=== PATIENT | female | born 1990 | race African-American/Black ===

== ENCOUNTER 2017-03-23 08:44 | Emergency (ER) | payer MEDICARE, MEDICAID ==
[~2017-03-23] VITALS: Ht 165.1 cm; Wt 99.0 kg
[~2017-03-23 08:44] MED LIST: AMOXICILLI400 MG/5 M PO; AMOXICILLIN875 MG OR; AUGMENTINES600 PO; BACTRIM DS1 TAB PO; BIRTH CONTROL; CIPRO500 MG OR; CIPROFLOXACN500 MG PO; CLEOCIN VAG2 % VA; DEPO-PROVER150 MG/ML IM; DIFLUCAN150 MG OR; DIFLUCAN150 MG PO; ELIMITE5 % EX; FAMVIR500 MG OR; FIORICET PO; LORTAB5 PO; MEDDOSEPAK PO; METRONIDAZOL0.75 % VA; METRONIDAZOL0.752 EX; NAPROSYN500 MG OR; NAPROSYN500 MG PO; NO HOME MEDS; TORADOL PO; TRAMADOL HCL50 MG PO; TRAZODONE100 MG OR; TRIMOX500 MG PO; ULTRAM50 MG OR; WELLBUTRIN150 M1 OR
[2017-03-23 09:38] LABS: HEMATOCRIT 38.1 % (37.0-47.0); HEMOGLOBIN 13.4 g/dl (12.0-16.0); IMMATURE GRANULOCYTES 0.4 % (0.0-1.0); MEAN CORPUSCULAR HGB 29.9 pG CALC (26.0-32.0); MEAN CORPUSCULAR HGB CONC 35.2 g/L CALC (32.0-36.0); NEUT# 10.42 thou/uL (2.00-7.15); RED BLOOD COUNT 4.48 mill/uL (4.20-5.60); RED CELL DISTRI WIDTH 14.1 % (11.5-15.5)
[2017-03-23 09:39] LABS: URINE BILIRUBIN - DIPSTICK NEGATIVE (NEGATIVE); URINE BLOOD DIPSTICK NEGATIVE (NEGATIVE); URINE CLARITY CLEAR; URINE COLOR YELLOW; URINE GLUCOSE - DIPSTICK NEGATIVE (NEGATIVE); URINE KETONE NEGATIVE (NEGATIVE); URINE LEUK ESTERASE NEGATIVE (NEGATIVE); URINE NITRITE - DIPSTICK NEGATIVE (Negative); URINE PH 5.5 (4.5-8.0); URINE PROTEIN - DIPSTICK NEGATIVE (NEG-TRACE); URINE SPECIFIC GRAVITY 1.015; URINE UROBILINOGEN - DIPSTICK 0.2 E.U./dL (0.2)
[2017-03-23 09:42] LABS: ALBUMIN 4.2 g/dL (3.2-5.0); ALKALINE PHOSPHATASE 66 u/l (38-126); AMYLASE 103 u/l (30-110); ANION GAP 13 (6-22 (CALC)); BILIRUBIN, TOTAL 0.6 mg/dL (0.0-1.4); BUN 10 mg/dL (7-17); BUN/CREATININE RATIO 12 (12-20 (CALC)); CALCIUM 9.5 mg/dL (8.4-10.2); CARBON DIOXIDE 27 mmol/l (22-30); CHLORIDE 105 mmol/l (95-108); CREATININE 0.8 mg/dL (0.5-1.0); GFR > 60 ML/MIN (>=60 (CALC)); GFR FOR AFR.AMER. > 60 ML/MIN (>=60 (CALC)); GLUCOSE 92 mg/dL (65-105); LIPASE 122 u/l (23-300); SGOT/AST 21 u/l (14-36); SGPT/ALT 24 u/l (9-52); SODIUM 141 mmol/l (137-146); TOTAL PROTEIN 7.3 g/dL (6.3-8.2)
[2017-03-23] MEDS ORDERED: NAPROSYN500 MG PO (11:29)
[2017-03-23 11:31] VITALS: BP 135/67
== END 2017-03-23 11:36 | disposition home or self-care (01) ==
LOC: ED 08:44
PROVIDERS: Emergency Medicine
DX: R10.31 Right lower quadrant pain (principal); N83.201 Unspecified ovarian cyst, right side; F32.9 Major depressive disorder, single episode, unspecified
CPT/HCPCS: Q9967

== ENCOUNTER 2018-04-09 08:24 | Emergency (ER) | payer MEDICARE, MEDICAID ==
[~2018-04-09] VITALS: Ht 165.1 cm; Wt 100.0 kg
[2018-04-09] MEDS ORDERED: VALIUM5 MG PO (08:50)
[2018-04-09] MEDS ORDERED: AMBIEN5 MG PO (08:50)
[2018-04-09 08:59] LABS: HEMATOCRIT 38.3 % (37.0-47.0); HEMOGLOBIN 13.3 g/dl (12.0-16.0); IMMATURE GRANULOCYTES 0.2 % (0.0-1.0); MEAN CELL VOLUME 86.1 fL CALC (80.0-100.0); MEAN CORPUSCULAR HGB 29.9 pG CALC (26.0-32.0); MEAN CORPUSCULAR HGB CONC 34.7 g/L CALC (32.0-36.0); NEUT# 4.01 thou/uL (2.00-7.15); RED BLOOD COUNT 4.45 mill/uL (4.20-5.60); RED CELL DISTRI WIDTH 14.4 % (11.5-15.5)
[2018-04-09 09:03] LABS: URINE BILIRUBIN - DIPSTICK NEGATIVE (NEGATIVE); URINE BLOOD DIPSTICK LARGE (NEGATIVE); URINE GLUCOSE - DIPSTICK NEGATIVE (NEGATIVE); URINE KETONE NEGATIVE (NEGATIVE); URINE LEUK ESTERASE TRACE (NEGATIVE); URINE NITRITE - DIPSTICK NEGATIVE (Negative); URINE PROTEIN - DIPSTICK 100 mg/dL (NEG-TRACE); URINE UROBILINOGEN - DIPSTICK 0.2 E.U./dL (0.2)
[2018-04-09 09:16] LABS: URINE CLARITY CLOUDY; URINE COLOR RED; URINE EPITHELIAL CELLS FEW EPI/hpf (0-FEW); URINE RBC TNTC RBC/hpf (0-5); URINE WBC 0-2 WBC/hpf (0-5)
[2018-04-09 09:44] LABS: ALBUMIN 4.1 g/dL (3.2-5.0); ALKALINE PHOSPHATASE 70 u/l (38-126); ANION GAP 13 (6-22 (CALC)); BILIRUBIN, TOTAL 0.4 mg/dL (0.0-1.4); BUN 10 mg/dL (7-17); BUN/CREATININE RATIO 14 (12-20 (CALC)); CARBON DIOXIDE 24 mmol/l (22-30); CHLORIDE 105 mmol/l (95-108); CREATININE 0.7 mg/dL (0.5-1.0); GFR > 60 ML/MIN (>=60 (CALC)); GFR FOR AFR.AMER. > 60 ML/MIN (>=60 (CALC)); SGOT/AST 22 u/l (14-36); SGPT/ALT 30 u/l (9-52); SODIUM 139 mmol/l (137-146); TOTAL PROTEIN 7.7 g/dL (6.3-8.2)
[2018-04-09 09:48] LABS: POTASSIUM 3.1 mmol/l (3.5-5.1)
[2018-04-09] MEDS ORDERED: PREDNISONE50 MG PO (10:14)
[2018-04-09] MEDS ORDERED: COLACE100 MG PO (10:14)
[2018-04-09 10:23] VITALS: BP 118/70
== END 2018-04-09 10:32 | disposition home or self-care (01) ==
LOC: ED 08:24
PROVIDERS: Emergency Medicine
DX: R10.9 Unspecified abdominal pain (principal); K56.41 Fecal impaction

== ENCOUNTER 2018-08-10 15:32 | Emergency (ER) | payer MEDICARE, MEDICAID ==
[~2018-08-10] VITALS: Ht 165.1 cm; Wt 100.0 kg
[~2018-08-10 15:32] MED LIST changes: +AMBIEN5 MG PO; +COLACE100 MG PO; +PREDNISONE50 MG PO; +VALIUM5 MG PO
[2018-08-10] MEDS ORDERED: ATIVAN1 MG PO (15:40)
[2018-08-10] MEDS ORDERED: IBUPROFEN600 MG PO (16:18)
[2018-08-10 16:20] VITALS: BP 140/66
== END 2018-08-10 16:25 | disposition home or self-care (01) ==
LOC: ED 15:32
DX: M54.5 Low back pain (principal); F41.9 Anxiety disorder, unspecified

== ENCOUNTER 2018-09-18 07:08 | Emergency (ER) | payer MEDICARE, MEDICAID ==
[~2018-09-18] VITALS: Ht 165.1 cm; Wt 100.0 kg
[~2018-09-18 07:08] MED LIST changes: +ATIVAN1 MG PO; +IBUPROFEN600 MG PO
[2018-09-18 07:42] LABS: URINE BILIRUBIN - DIPSTICK NEGATIVE (NEGATIVE); URINE BLOOD DIPSTICK NEGATIVE (NEGATIVE); URINE COLOR YELLOW; URINE GLUCOSE - DIPSTICK NEGATIVE (NEGATIVE); URINE KETONE NEGATIVE (NEGATIVE); URINE LEUK ESTERASE NEGATIVE (NEGATIVE); URINE NITRITE - DIPSTICK NEGATIVE (Negative); URINE PH 5.5 (4.5-8.0); URINE PROTEIN - DIPSTICK NEGATIVE (NEG-TRACE); URINE SPECIFIC GRAVITY 1.025; URINE UROBILINOGEN - DIPSTICK 0.2 E.U./dL (0.2)
[2018-09-18 07:44] LABS: URINE CLARITY CLEAR
[2018-09-18 10:23] VITALS: BP 135/74
== END 2018-09-18 10:23 | disposition home or self-care (01) ==
LOC: ED 07:08
PROVIDERS: Emergency Medicine
DX: R10.2 Pelvic and perineal pain (principal); R10.31 Right lower quadrant pain

== ENCOUNTER 2018-11-14 08:36 | Emergency (ER) | payer MEDICARE, MEDICAID ==
[~2018-11-14] VITALS: Ht 165.1 cm; Wt 102.0 kg
[2018-11-14 09:35] LABS: URINE BILIRUBIN - DIPSTICK NEGATIVE (NEGATIVE); URINE BLOOD DIPSTICK NEGATIVE (NEGATIVE); URINE COLOR YELLOW; URINE GLUCOSE - DIPSTICK NEGATIVE (NEGATIVE); URINE KETONE NEGATIVE (NEGATIVE); URINE LEUK ESTERASE NEGATIVE (NEGATIVE); URINE NITRITE - DIPSTICK NEGATIVE (Negative); URINE PROTEIN - DIPSTICK NEGATIVE (NEG-TRACE); URINE UROBILINOGEN - DIPSTICK 0.2 E.U./dL (0.2)
[2018-11-14] MEDS ORDERED: FLONASE AL50 MCG/ACT (10:34)
[2018-11-14] MEDS ORDERED: FIORICET PO (10:34)
[2018-11-14 10:46] VITALS: BP 121/60
== END 2018-11-14 10:59 | disposition home or self-care (01) ==
LOC: ED 08:36
PROVIDERS: Emergency Medicine
DX: R51 Headache (principal); R09.81 Nasal congestion

== ENCOUNTER 2019-04-04 18:52 | Emergency (ER) | payer MEDICARE, MEDICAID ==
[~2019-04-04] VITALS: Ht 167.6 cm; Wt 100.0 kg
[~2019-04-04 18:52] MED LIST changes: +FLONASE AL50 MCG/ACT
[2019-04-04 19:45] LABS: HEMATOCRIT 38.8 % (37.0-47.0); HEMOGLOBIN 13.5 g/dl (12.0-16.0); IMMATURE GRANULOCYTES 0.3 % (0.0-5.0); MEAN CELL VOLUME 85.8 fL CALC (80.0-100.0); MEAN CORPUSCULAR HGB 29.9 pG CALC (26.0-32.0); MEAN CORPUSCULAR HGB CONC 34.8 g/L CALC (32.0-36.0); NEUT# 5.68 thou/uL (2.00-7.15); RED BLOOD COUNT 4.52 mill/uL (4.20-5.60); RED CELL DISTRI WIDTH 13.4 % (11.5-15.5)
[2019-04-04 19:51] LABS: BARBITURATES NEGATIVE (NEGATIVE); COCAINE NEGATIVE (NEGATIVE); METHADONE NEGATIVE (NEGATIVE); OXCYCODONE NEGATIVE (NEGATIVE); TETRAHYDROCANNABIONOL NEGATIVE (NEGATIVE); TRICYLIC ANTIDEPRESSANTS NEGATIVE (NEGATIVE)
[2019-04-04 20:03] LABS: ALBUMIN 4.4 g/dL (3.2-5.0); ALKALINE PHOSPHATASE 69 u/l (38-126); BILIRUBIN, TOTAL 0.3 mg/dL (0.0-1.4); BUN 12 mg/dL (7-17); BUN/CREATININE RATIO 14 (12-20 (CALC)); CARBON DIOXIDE 25 mmol/l (22-30); CHLORIDE 105 mmol/l (95-108); CREATININE 0.8 mg/dL (0.5-1.0); GFR > 60 ML/MIN (>=60 (CALC)); GFR FOR AFR.AMER. > 60 ML/MIN (>=60 (CALC)); SGOT/AST 26 u/l (14-36); SODIUM 142 mmol/l (137-146); TOTAL PROTEIN 7.9 g/dL (6.3-8.2)
[2019-04-04 20:04] LABS: ANION GAP 16 (6-22 (CALC)); POTASSIUM 3.9 mmol/l (3.5-5.1)
[2019-04-04 20:15] LABS: MYOGLOBIN 27 ng/mL (0 - 62)
[2019-04-04 22:15] VITALS: BP 117/59
== END 2019-04-04 22:21 | disposition home or self-care (01) ==
LOC: ED 18:52
PROVIDERS: Emergency Medicine
DX: R06.00 Dyspnea, unspecified (principal); R07.9 Chest pain, unspecified

== ENCOUNTER 2019-07-07 18:37 | Emergency (ER) | payer MEDICARE, MEDICAID ==
[~2019-07-07] VITALS: Ht 167.6 cm; Wt 100.0 kg
[2019-07-07] MEDS ORDERED: BIRTH CONTROL (18:46)
[2019-07-07] MEDS ORDERED: RANITIDINE HCL150 MG PO (19:23)
[2019-07-07] MEDS ORDERED: AUROVELA PO (19:23)
[2019-07-07] MEDS ORDERED: ZOLPIDEM TARTRA10 MG PO (19:23)
[2019-07-07] MEDS ORDERED: OMEPRAZOLE DR40 MG PO (19:24)
[2019-07-07 19:45] VITALS: BP 132/72
[2019-07-07] MEDS ORDERED: AMOXICILLIN500 MG PO ×2 (19:45→19:47)
== END 2019-07-07 19:45 | disposition home or self-care (01) ==
LOC: ED 18:37
DX: J06.9 Acute upper respiratory infection, unspecified (principal); H66.91 Otitis media, unspecified, right ear

== ENCOUNTER 2020-01-04 | Emergency (ER) | payer MEDICAID ==
[~2020-01-04] MED LIST changes: +AMOXICILLIN500 MG PO; +AUROVELA PO; +OMEPRAZOLE DR40 MG PO; +RANITIDINE HCL150 MG PO; +ZOLPIDEM TARTRA10 MG PO
[2020-01-04 09:37] LABS: HEMATOCRIT 39.9 % (37.0-47.0); HEMOGLOBIN 13.6 g/dl (12.0-16.0); IMMATURE GRANULOCYTES 0.2 % (0.0-5.0); MEAN CELL VOLUME 87.9 fL CALC (80.0-100.0); MEAN CORPUSCULAR HGB CONC 34.1 g/dL CAL (32.0-36.0); NEUT# 2.39 thou/uL (2.00-7.15); RED BLOOD COUNT 4.54 mill/uL (4.20-5.60); RED CELL DISTRI WIDTH 13.6 % (11.5-15.5)
[2020-01-04] MEDS ORDERED: TESSALON PER100 MG PO (10:09)
== END 2020-01-04 10:23 | disposition home or self-care (01) ==
PROVIDERS: Family Medicine
DX: B34.9 Viral infection, unspecified (principal)

== ENCOUNTER 2020-03-05 15:58 | Emergency (ER) | payer MEDICAID ==
[~2020-03-05 15:58] MED LIST changes: +TESSALON PER100 MG PO
[2020-03-05 16:16] VITALS: BP 155/86
== END 2020-03-05 17:05 | disposition left against medical advice (07) ==
LOC: ED 15:58
DX: R20.2 Paresthesia of skin (principal); Z91.19 Patient's noncompliance with other medical treatment and regimen

== ENCOUNTER 2021-12-08 17:30 | Emergency (ER) | payer MEDICAID ==
[~2021-12-08] VITALS: Ht 167.6 cm; Wt 82.0 kg
[2021-12-08 18:46] VITALS: BP 136/102
[2021-12-08] MEDS ORDERED: GENTAMICIN SULF5 ML OS (20:03)
== END 2021-12-08 20:25 | disposition home or self-care (01) ==
LOC: ED 17:30
DX: S05.02XA Injury of conjunctiva and corneal abrasion without foreign body, left eye, initial encounter (principal); H10.9 Unspecified conjunctivitis; F41.9 Anxiety disorder, unspecified; X58.XXXA Exposure to other specified factors, initial encounter

== ENCOUNTER 2023-03-28 13:16 | Emergency (ER) | payer OTHER, MEDICAID ==
[~2023-03-28] VITALS: Ht 167.6 cm; Wt 80.4 kg
[~2023-03-28 13:16] MED LIST changes: +GENTAMICIN SULF5 ML OS
[2023-03-28 13:56] VITALS: BP 118/81
[2023-03-28 14:00] VITALS: BP 113/85
[2023-03-28] MEDS ORDERED: FLEXERIL5 M1 PO (14:03)
[2023-03-28] MEDS ORDERED: NAPROXEN500 MG PO ×2 (17:01→17:13)
[2023-03-28 17:17] VITALS: BP 113/85
== END 2023-03-28 17:17 | disposition home or self-care (01) | DRG 552 ==
LOC: ED 13:16
DX: M54.6 Pain in thoracic spine (principal); M54.50 Low back pain, unspecified; F41.9 Anxiety disorder, unspecified

== ENCOUNTER 2024-10-03 10:15 | Emergency (ER) | payer OTHER ==
[~2024-10-03] VITALS: Ht 167.6 cm; Wt 104.0 kg
[~2024-10-03 10:15] MED LIST changes: +FLEXERIL5 M1 PO; +NAPROXEN500 MG PO
[2024-10-03 10:28] VITALS: BP 141/84
[2024-10-03 11:04] LABS: URINE BILIRUBIN - DIPSTICK Negative (NEGATIVE); URINE BLOOD DIPSTICK Trace-lysed (NEGATIVE); URINE GLUCOSE - DIPSTICK Negative (NEGATIVE); URINE KETONE Negative (NEGATIVE); URINE LEUK ESTERASE Negative (NEGATIVE); URINE NITRITE - DIPSTICK Negative (Negative); URINE PH 5.5 (4.5-8.0); URINE PROTEIN - DIPSTICK Negative (NEG-TRACE); URINE SPECIFIC GRAVITY 1.015; URINE UROBILINOGEN - DIPSTICK 0.2 E.U./dL (0.2)
[2024-10-03 11:09] LABS: URINE COLOR Yellow
[2024-10-03 12:00] VITALS: BP 141/84
== END 2024-10-03 11:58 | disposition left against medical advice (07) | DRG 951 ==
LOC: ED 10:15
PROVIDERS: Family Medicine
DX: Z53.21 Procedure and treatment not carried out due to patient leaving prior to being seen by health care provider (principal)